=== PATIENT | female | born 1965 | race Caucasian/White ===

== ENCOUNTER 2020-06-19 20:44 | Inpatient (IN) | payer MEDICAID ==
[~2020-06-19] VITALS: Ht 157.5 cm; Wt 59.9 kg
[~2020-06-19 20:44] MED LIST: GABA-1181 PO; LORA1TAB3 PO; NOCURR; VENL-68 PO
[2020-06-20] VITALS (10 sets, daily range): BP systolic 105–151; BP diastolic 59–85
[2020-06-20] MEDS ORDERED: OLANZapine 5 MG RAPDIS TABLET PO PRN (00:30)
[2020-06-20] MEDS ORDERED: ZOLPIDEM TARTRATE 10 MG TABLET PO PRN (00:30)
[2020-06-20] MEDS: LORazepam 2 MG TABLET PO PRN ×4 (02:33→17:45)
[2020-06-20] MEDS ORDERED: INFLUENZA VIRUS VACCINE QVS 2020-21 (6MO+)/PF 60 MCG/0.5 ML SYRINGE IM ONE (03:00)
[2020-06-20] MEDS: NICOTINE 21 MG/24 HOUR PATCH TD SCH (08:52)
[2020-06-20] MEDS ORDERED: ACETAMINOPHEN 325 MG TABLET PO PRN (15:00)
[2020-06-20] MEDS ORDERED: GuaiFENesin/D-METHORPHAN [SUGAR-FREE] 200-20MG/10 ML SYRUP UDCUP PO PRN (15:45)
[2020-06-20] MEDS ORDERED: PROMETHAZINE HCL 25 MG TABLET PO PRN (15:45)
[2020-06-20] MEDS ORDERED: MAG HYDROX/AL HYDROX/SIMETH ES 30 ML SUSPENSION UDCUP PO PRN (15:45)
[2020-06-20] MEDS ORDERED: CYANOCOBALAMIN 1,000 MCG/ML VIAL IM ONE (15:45)
[2020-06-20] MEDS ORDERED: LOPERAMIDE HCL 2 MG CAPSULE PO PRN ×2 (15:45)
[2020-06-20] MEDS ORDERED: MAGNESIUM HYDROXIDE SUSPENSION 30 ML UDCUP PO PRN (15:45)
[2020-06-20] MEDS: THIAMINE 100 MG TABLET PO SCH (17:11)
[2020-06-20] MEDS: GABAPENTIN 300 MG CAPSULE PO SCH ×2 (17:12→21:16)
[2020-06-20] MEDS ORDERED: OLANZapine 7.5 MG TABLET PO SCH (21:00)
[2020-06-21] VITALS (7 sets, daily range): BP systolic 110–144; BP diastolic 69–83
[2020-06-21] MEDS ORDERED: LORazepam 2 MG TABLET PO PRN (07:00)
[2020-06-21] MEDS: FOLIC ACID 1 MG TABLET PO SCH (08:14)
[2020-06-21] MEDS: LORazepam 2 MG TABLET PO SCH ×4 (08:14→20:05)
[2020-06-21] MEDS: MULTIVITAMINS WITH MINERALS, THERAPEUTIC TABLET PO SCH (08:14)
[2020-06-21] MEDS: THIAMINE 100 MG TABLET PO SCH ×2 (08:14→16:19)
[2020-06-21] MEDS: GABAPENTIN 300 MG CAPSULE PO SCH ×2 (08:14→12:23)
[2020-06-21] MEDS: NICOTINE 21 MG/24 HOUR PATCH TD SCH (08:16)
[2020-06-21] MEDS ORDERED: DULoxetine HCL 20 MG CAPSULE PO SCH (09:00)
[2020-06-21] MEDS: GABAPENTIN 400 MG CAPSULE PO SCH ×2 (16:19→20:04)
[2020-06-21] MEDS: QUEtiapine FUMARATE 25 MG TABLET PO SCH (16:19)
[2020-06-21] MEDS ORDERED: QUEtiapine FUMARATE 200 MG TABLET PO SCH (21:00)
[2020-06-22 00:39] VITALS: BP 104/62
[2020-06-22 02:41] VITALS: BP 118/68
[2020-06-22 08:20] VITALS: BP 129/65
[2020-06-22] MEDS: GABAPENTIN 400 MG CAPSULE PO SCH ×4 (08:37→20:10)
[2020-06-22] MEDS: DULoxetine HCL 30 MG CAPSULE PO SCH (08:37)
[2020-06-22] MEDS: MULTIVITAMINS WITH MINERALS, THERAPEUTIC TABLET PO SCH (08:37)
[2020-06-22] MEDS: THIAMINE 100 MG TABLET PO SCH ×2 (08:37→16:24)
[2020-06-22] MEDS: QUEtiapine FUMARATE 25 MG TABLET PO SCH ×3 (08:37→16:32)
[2020-06-22] MEDS: FOLIC ACID 1 MG TABLET PO SCH (08:37)
[2020-06-22] MEDS: NICOTINE 21 MG/24 HOUR PATCH TD SCH (08:38)
[2020-06-22] MEDS: LORazepam 2 MG TABLET PO SCH ×4 (08:38→20:10)
[2020-06-22 12:31] VITALS: BP 106/68
[2020-06-22 16:00] VITALS: BP 114/71
[2020-06-22 16:15] VITALS: BP 114/71
[2020-06-22] MEDS: GABAPENTIN 100 MG CAPSULE PO SCH ×2 (17:19→20:10)
[2020-06-22] MEDS: QUEtiapine FUMARATE 300 MG TABLET PO SCH (20:11)
[2020-06-22] MEDS: PRAZOSIN HCL 1 MG CAPSULE PO SCH (20:45)
[2020-06-23] VITALS (7 sets, daily range): BP systolic 103–129; BP diastolic 31–81
[2020-06-23] MEDS ORDERED: LORazepam 1 MG TABLET PO PRN (07:00)
[2020-06-23] MEDS: LORazepam 1 MG TABLET PO SCH ×4 (08:24→20:03)
[2020-06-23] MEDS: THIAMINE 100 MG TABLET PO SCH ×2 (08:24→16:10)
[2020-06-23] MEDS: FOLIC ACID 1 MG TABLET PO SCH (08:25)
[2020-06-23] MEDS: QUEtiapine FUMARATE 25 MG TABLET PO SCH ×3 (08:25→16:10)
[2020-06-23] MEDS: DULoxetine HCL 30 MG CAPSULE PO SCH (08:25)
[2020-06-23] MEDS: GABAPENTIN 100 MG CAPSULE PO SCH ×4 (08:25→20:03)
[2020-06-23] MEDS: GABAPENTIN 400 MG CAPSULE PO SCH ×4 (08:25→20:03)
[2020-06-23] MEDS: MULTIVITAMINS WITH MINERALS, THERAPEUTIC TABLET PO SCH (08:25)
[2020-06-23] MEDS: NICOTINE 21 MG/24 HOUR PATCH TD SCH (08:28)
[2020-06-23] MEDS ORDERED: QUEtiapine FUMARATE 100 MG TABLET PO SCH (17:00)
[2020-06-23] MEDS: QUEtiapine FUMARATE 300 MG TABLET PO SCH (20:03)
[2020-06-23] MEDS: PRAZOSIN HCL 1 MG CAPSULE PO SCH (20:03)
[2020-06-24 00:15] VITALS: BP 116/77
[2020-06-24 06:02] VITALS: BP 105/58
[2020-06-24] MEDS ORDERED: LORazepam 1 MG TABLET PO PRN (07:00)
[2020-06-24 07:50] LABS: BASOPHILS % (AUTO) 0.9 % (0.0-2.0); EOSINOPHILS % (AUTO) 5.5 % (1.0-6.0); HEMATOCRIT 40.2 % (36-46); HEMOGLOBIN 13.4 g/dL (12.0-16.0); LYMPHOCYTES # (AUTO) 1.8 K/uL (1.0-4.8); LYMPHOCYTES % (AUTO) 32.4 % (22.0-44.0); MEAN CORPUSCULAR HEMOGLOBIN 33.2 pg (26.0-34.0); MEAN CORPUSCULAR HGB CONC 33.4 G/dL (31.0-37.0); MEAN CORPUSCULAR VOLUME 99 fL (80-100); MONOCYTES # (AUTO) 0.4 K/uL (0.1-1.0); MONOCYTES % (AUTO) 7.3 % (2.0-9.0); NEUTROPHILS % (AUTO) 53.9 % (40.0-70.0); PLATELET COUNT (AUTO) 195 K/uL (150-450); RED BLOOD CELL COUNT(AUTO) 4.05 MIL/uL (4.00-5.20); RED CELL DISTRIBUTION WIDTH 13.5 % (11.5-14.5)
[2020-06-24 07:59] LABS: HEMOGLOBIN A1C 4.9 % (3.8-5.6)
[2020-06-24 08:08] LABS: ALANINE AMINOTRANSFERASE 109 U/L (12-78); ALBUMIN 3.8 g/dL (3.4-5.0); ALKALINE PHOSPHATASE 67 U/L (46-116); ANION GAP 6 mmol/L (8-16); ASPARTATE AMINOTRANSFERASE 64 U/L (15-37); BILIRUBIN,TOTAL 0.3 mg/dL (0.1-1.0); CALCIUM, TOTAL 9.2 mg/dL (8.8-10.5); CARBON DIOXIDE 30 mmol/L (22-29); CHLORIDE 103 mmol/L (98-107); CHOL/HDL RATIO 2.7 (3.9-5.7); CHOLESTEROL 212 mg/dL (131-200); CREATININE 0.68 mg/dL (0.60-1.30); GLOMERULAR FILTR. RATE CALC > 60 mL/min (>60); GLUCOSE,RANDOM 86 mg/dL (70-110); HDL CHOLESTEROL 79 mg/dL (40-60); LDL CHOL (CALC.) 120 mg/dL (0-130); POTASSIUM 4.1 mmol/L (3.5-5.1); SODIUM SERUM 139 mmol/L (136-145); THYROID STIMULATING HORMONE 0.78 uIU/mL (0.36-3.74); TOTAL PROTEIN, SERUM 7.2 g/dL (6.4-8.2); TRIGLYCERIDES 67 mg/dL (15-150); UREA NITROGEN, BLOOD 20 mg/dL (7-18)
[2020-06-24 08:18] VITALS: BP 121/68
[2020-06-24] MEDS: FOLIC ACID 1 MG TABLET PO SCH (09:53)
[2020-06-24] MEDS: MULTIVITAMINS WITH MINERALS, THERAPEUTIC TABLET PO SCH (09:53)
[2020-06-24] MEDS: DULoxetine HCL 20 MG CAPSULE PO SCH (09:53)
[2020-06-24] MEDS: THIAMINE 100 MG TABLET PO SCH ×2 (09:53→17:03)
[2020-06-24] MEDS: QUEtiapine FUMARATE 100 MG TABLET PO SCH ×3 (09:53→17:04)
[2020-06-24] MEDS: GABAPENTIN 100 MG CAPSULE PO SCH ×4 (09:53→20:07)
[2020-06-24] MEDS: GABAPENTIN 400 MG CAPSULE PO SCH ×4 (09:53→20:07)
[2020-06-24] MEDS: NICOTINE 21 MG/24 HOUR PATCH TD SCH (09:54)
[2020-06-24 16:08] VITALS: BP 105/67
[2020-06-24 20:06] VITALS: BP 110/73
[2020-06-24] MEDS: PRAZOSIN HCL 1 MG CAPSULE PO SCH (20:07)
[2020-06-24] MEDS: QUEtiapine FUMARATE 300 MG TABLET PO SCH (20:07)
[2020-06-25] VITALS (7 sets, daily range): BP systolic 104–136; BP diastolic 65–80
[2020-06-25 07:13] LABS: COVID AG,FIA SOURCE NASOPHARYNGEAL
[2020-06-25] MEDS: GABAPENTIN 100 MG CAPSULE PO SCH ×4 (08:03→20:07)
[2020-06-25] MEDS: QUEtiapine FUMARATE 100 MG TABLET PO SCH ×3 (08:04→16:06)
[2020-06-25] MEDS: DULoxetine HCL 20 MG CAPSULE PO SCH (08:04)
[2020-06-25] MEDS: MULTIVITAMINS WITH MINERALS, THERAPEUTIC TABLET PO SCH (08:04)
[2020-06-25] MEDS: GABAPENTIN 400 MG CAPSULE PO SCH ×4 (08:04→20:07)
[2020-06-25] MEDS: NICOTINE 21 MG/24 HOUR PATCH TD SCH (08:04)
[2020-06-25] MEDS: FOLIC ACID 1 MG TABLET PO SCH (08:04)
[2020-06-25] MEDS: THIAMINE 100 MG TABLET PO SCH ×2 (08:04→16:06)
[2020-06-25] MEDS: HydrOXYzine PAMOATE 50 MG CAPSULE PO PRN ×2 (09:07→14:03)
[2020-06-25] MEDS: PRAZOSIN HCL 1 MG CAPSULE PO SCH (20:07)
[2020-06-25] MEDS: QUEtiapine FUMARATE 300 MG TABLET PO SCH (20:07)
[2020-06-26 01:06] VITALS: BP 128/80
[2020-06-26] MEDS: QUEtiapine FUMARATE 100 MG TABLET PO PRN ×2 (01:15→17:37)
[2020-06-26] MEDS: ACETAMINOPHEN 325 MG TABLET PO PRN ×2 (01:16→14:02)
[2020-06-26 04:34] VITALS: BP 119/73
[2020-06-26 05:06] VITALS: BP 119/73
[2020-06-26] MEDS: DULoxetine HCL 20 MG CAPSULE PO SCH (08:08)
[2020-06-26] MEDS: THIAMINE 100 MG TABLET PO SCH ×2 (08:08→16:37)
[2020-06-26] MEDS: GABAPENTIN 400 MG CAPSULE PO SCH ×4 (08:08→19:53)
[2020-06-26] MEDS: FOLIC ACID 1 MG TABLET PO SCH (08:08)
[2020-06-26] MEDS: QUEtiapine FUMARATE 100 MG TABLET PO SCH ×2 (08:08→12:27)
[2020-06-26] MEDS: GABAPENTIN 100 MG CAPSULE PO SCH ×2 (08:08→12:26)
[2020-06-26] MEDS: MULTIVITAMINS WITH MINERALS, THERAPEUTIC TABLET PO SCH (08:08)
[2020-06-26] MEDS: NICOTINE 21 MG/24 HOUR PATCH TD SCH (08:09)
[2020-06-26 08:11] VITALS: BP 126/69
[2020-06-26] MEDS ORDERED: HydrOXYzine HCL 50 MG TABLET PO PRN (16:15)
[2020-06-26 16:18] VITALS: BP 125/69
[2020-06-26] MEDS: QUEtiapine FUMARATE 200 MG TABLET PO SCH (19:53)
[2020-06-26] MEDS: PRAZOSIN HCL 1 MG CAPSULE PO SCH (20:37)
[2020-06-27 04:24] VITALS: BP 116/63
[2020-06-27 08:13] VITALS: BP 110/63
[2020-06-27] MEDS: THIAMINE 100 MG TABLET PO SCH ×2 (08:43→16:08)
[2020-06-27] MEDS: MULTIVITAMINS WITH MINERALS, THERAPEUTIC TABLET PO SCH (08:44)
[2020-06-27] MEDS: FOLIC ACID 1 MG TABLET PO SCH (08:44)
[2020-06-27] MEDS: DULoxetine HCL 20 MG CAPSULE PO SCH (08:45)
[2020-06-27] MEDS: GABAPENTIN 400 MG CAPSULE PO SCH ×3 (08:45→16:08)
[2020-06-27] MEDS: NICOTINE 21 MG/24 HOUR PATCH TD SCH (08:46)
[2020-06-27] MEDS: QUEtiapine FUMARATE 100 MG TABLET PO PRN (16:10)
[2020-06-27 16:17] VITALS: BP 131/78
[2020-06-27] MEDS ORDERED: DULO-8 PO (18:05)
[2020-06-27] MEDS ORDERED: OMEG-135 PO (18:05)
[2020-06-27] MEDS ORDERED: PRAZ1 PO (18:05)
[2020-06-27] MEDS ORDERED: NALT50TA PO (18:05)
[2020-06-27] MEDS ORDERED: QUET200T29 PO (18:05)
[2020-06-27] MEDS ORDERED: MELA5TAB3 PO (18:05)
[2020-06-27] MEDS ORDERED: GABA-1181 PO (18:05)
[2020-06-27] MEDS ORDERED: LORA-1000 PO (18:10)
[2020-06-27] MEDS: PRAZOSIN HCL 1 MG CAPSULE PO SCH (20:32)
[2020-06-27] MEDS: QUEtiapine FUMARATE 200 MG TABLET PO SCH (20:32)
[2020-06-27] MEDS ORDERED: MELATONIN 5 MG TABLET PO SCH (21:00)
[2020-06-28 00:24] VITALS: BP 129/67
[2020-06-28] MEDS: QUEtiapine FUMARATE 100 MG TABLET PO PRN (02:10)
[2020-06-28] MEDS: THIAMINE 100 MG TABLET PO SCH (08:18)
[2020-06-28] MEDS: MULTIVITAMINS WITH MINERALS, THERAPEUTIC TABLET PO SCH (08:18)
[2020-06-28] MEDS: FOLIC ACID 1 MG TABLET PO SCH (08:18)
[2020-06-28 08:23] VITALS: BP 106/70
[2020-06-28] MEDS: NICOTINE 21 MG/24 HOUR PATCH TD SCH (08:50)
[2020-06-28] MEDS ORDERED: DULoxetine HCL 60 MG CAPSULE PO SCH (09:00)
[2020-06-28] MEDS ORDERED: OMEGA-3/DHA/EPA/FISH OIL 1,000 MG CAPSULE PO SCH (09:00)
[2020-06-28] MEDS ORDERED: GABAPENTIN 300 MG CAPSULE PO SCH (09:00)
[2020-06-28] MEDS ORDERED: NALTREXONE HCL 50 MG TABLET PO SCH (09:00)
== END 2020-06-28 09:50 | disposition home or self-care (01) | DRG 750 ==
LOC: B2S 06-20 00:25
PROVIDERS: ADMIT Psychiatry & Neurology Psychiatry; ATTEND Psychiatry & Neurology Psychiatry
DX: F25.1 Schizoaffective disorder, depressive type (principal); J44.9 Chronic obstructive pulmonary disease, unspecified; F17.200 Nicotine dependence, unspecified, uncomplicated; F12.90 Cannabis use, unspecified, uncomplicated; F43.10 Post-traumatic stress disorder, unspecified; Y90.9 Presence of alcohol in blood, level not specified; Z91.5 Personal history of self-harm; F10.20 Alcohol dependence, uncomplicated; K21.9 Gastro-esophageal reflux disease without esophagitis; Z90.49 Acquired absence of other specified parts of digestive tract; F41.0 Panic disorder [episodic paroxysmal anxiety]; Z79.899 Other long term (current) drug therapy; Z59.0 Homelessness; Z20.822 Contact with and (suspected) exposure to COVID-19; Z23 Encounter for immunization
CPT/HCPCS: 83036; 84436; 84443; 87426; 90686; A9575; J3420

== ENCOUNTER 2020-10-26 21:17 | Inpatient (IN) | payer MEDICAID ==
[~2020-10-26] VITALS: Ht 157.5 cm; Wt 58.8 kg
[~2020-10-26 21:17] MED LIST changes: +DULO-8 PO; -LORA1TAB3 PO; +MELA5TAB3 PO; +NALT50TA PO; -NOCURR; +OMEG-135 PO; +PRAZ1 PO; +QUET200T29 PO; -VENL-68 PO
[2020-10-26] MEDS ORDERED: ZOLPIDEM TARTRATE 10 MG TABLET PO PRN (22:15)
[2020-10-26] MEDS ORDERED: HALOPERIDOL 5 MG TABLET PO PRN (22:15)
[2020-10-26 22:50] LABS: COVID AG,FIA SOURCE NASAL SWAB
[2020-10-27] VITALS (15 sets, daily range): BP systolic 71–155; BP diastolic 44–90
[2020-10-27] MEDS: LORazepam 2 MG TABLET PO PRN ×3 (00:26→12:06)
[2020-10-27 07:44] LABS: BASOPHILS % (AUTO) 0.7 % (0.0-2.0); EOSINOPHILS % (AUTO) 5.3 % (1.0-6.0); HEMATOCRIT 38.8 % (36-46); HEMOGLOBIN 13.6 g/dL (12.0-16.0); LYMPHOCYTES # (AUTO) 2.2 K/uL (1.0-4.8); MEAN CORPUSCULAR HEMOGLOBIN 33.1 pg (26.0-34.0); MEAN CORPUSCULAR HGB CONC 34.9 G/dL (31.0-37.0); MEAN CORPUSCULAR VOLUME 95 fL (80-100); MONOCYTES # (AUTO) 0.5 K/uL (0.1-1.0); MONOCYTES % (AUTO) 8.3 % (2.0-9.0); NEUTROPHILS # (AUTO) 2.7 K/uL (1.8-7.7); NEUTROPHILS % (AUTO) 46.7 % (40.0-70.0); PLATELET COUNT (AUTO) 202 K/uL (150-450); RED BLOOD CELL COUNT(AUTO) 4.09 MIL/uL (4.00-5.20)
[2020-10-27] MEDS ORDERED: LOPERAMIDE HCL 2 MG CAPSULE PO PRN (07:45)
[2020-10-27] MEDS ORDERED: GuaiFENesin/D-METHORPHAN [SUGAR-FREE] 200-20MG/10 ML SYRUP UDCUP PO PRN (07:45)
[2020-10-27] MEDS ORDERED: DOCUSATE SODIUM 100 MG CAPSULE PO PRN (07:45)
[2020-10-27] MEDS ORDERED: ONDANSETRON HCL 4 MG TABLET PO PRN (07:45)
[2020-10-27] MEDS ORDERED: MAGNESIUM HYDROXIDE SUSPENSION 30 ML UDCUP PO PRN (07:45)
[2020-10-27] MEDS ORDERED: CloNIDine HCL 0.1 MG TABLET PO PRN (07:45)
[2020-10-27] MEDS ORDERED: ALBUTEROL SULFATE HFA 90 MCG/PUFF 8 GM INHALER IH PRN (07:45)
[2020-10-27] MEDS ORDERED: ACETAMINOPHEN 325 MG TABLET PO PRN (07:45)
[2020-10-27] MEDS ORDERED: NICOTINE 14 MG/24 HOUR PATCH TD PRN (07:45)
[2020-10-27] MEDS ORDERED: PETROLATUM,WHITE 28 GM JELLY TP PRN (07:45)
[2020-10-27] MEDS ORDERED: IBUPROFEN 400 MG TABLET PO PRN (07:45)
[2020-10-27] MEDS ORDERED: MAG HYDROX/AL HYDROX/SIMETH ES 30 ML SUSPENSION UDCUP PO PRN (07:45)
[2020-10-27 07:51] LABS: HEMOGLOBIN A1C 5.2 % (3.8-5.6)
[2020-10-27 08:12] LABS: ALANINE AMINOTRANSFERASE 81 U/L (12-78); ALBUMIN 3.5 g/dL (3.4-5.0); ALKALINE PHOSPHATASE 109 U/L (46-116); ANION GAP 10 mmol/L (8-16); ASPARTATE AMINOTRANSFERASE 76 U/L (15-37); BILIRUBIN,TOTAL 1.8 mg/dL (0.1-1.0); CALCIUM, TOTAL 8.9 mg/dL (8.8-10.5); CARBON DIOXIDE 33 mmol/L (22-29); CHLORIDE 96 mmol/L (98-107); CHOL/HDL RATIO 2.1 (3.9-5.7); CHOLESTEROL 187 mg/dL (131-200); CREATININE 0.63 mg/dL (0.60-1.30); FREE T4 (FREE THYROXINE) 0.93 ng/dL (0.76-1.46); GLOMERULAR FILTR. RATE CALC > 60 mL/min (>60); GLUCOSE,RANDOM 65 mg/dL (70-110); HDL CHOLESTEROL 89 mg/dL (40-60); LDL CHOL (CALC.) 86 mg/dL (0-130); SODIUM SERUM 139 mmol/L (136-145); TOTAL PROTEIN, SERUM 6.7 g/dL (6.4-8.2); TRIGLYCERIDES 62 mg/dL (15-150); UREA NITROGEN, BLOOD 29 mg/dL (7-18)
[2020-10-27] MEDS: OMEGA-3/DHA/EPA/FISH OIL 1,000 MG CAPSULE PO SCH (08:31)
[2020-10-27] MEDS: DULoxetine HCL 60 MG CAPSULE PO SCH (12:06)
[2020-10-27] MEDS: NALTREXONE HCL 50 MG TABLET PO SCH (12:06)
[2020-10-27] MEDS: GABAPENTIN 300 MG CAPSULE PO SCH ×2 (12:08→16:51)
[2020-10-27] MEDS ORDERED: POTASSIUM CHLORIDE 20 MEQ ER TABLET PO ONE (15:30)
[2020-10-27] MEDS ORDERED: ChlordiazePOXIDE HCL 25 MG CAPSULE PO PRN (16:15)
[2020-10-27] MEDS: QUEtiapine FUMARATE 200 MG TABLET PO SCH (21:02)
[2020-10-27] MEDS: PRAZOSIN HCL 1 MG CAPSULE PO SCH (21:02)
[2020-10-27] MEDS: MELATONIN 5 MG TABLET PO SCH (21:02)
[2020-10-27 23:49] LABS: GLUCOMETER DEV NAME(LOC) BV3S.; GLUCOSE,POINT OF CARE 114 MG/DL (70-110)
[2020-10-28] VITALS (13 sets, daily range): BP systolic 83–168; BP diastolic 49–71
[2020-10-28] MEDS ORDERED: ChlordiazePOXIDE HCL 25 MG CAPSULE PO PRN (07:00)
[2020-10-28] MEDS: OMEGA-3/DHA/EPA/FISH OIL 1,000 MG CAPSULE PO SCH (09:02)
[2020-10-28] MEDS: ChlordiazePOXIDE HCL 25 MG CAPSULE PO SCH ×4 (09:04→20:01)
[2020-10-28] MEDS: GABAPENTIN 300 MG CAPSULE PO SCH ×3 (09:04→16:42)
[2020-10-28] MEDS: DULoxetine HCL 60 MG CAPSULE PO SCH (09:06)
[2020-10-28] MEDS: NALTREXONE HCL 50 MG TABLET PO SCH (09:06)
[2020-10-28] MEDS: MELATONIN 5 MG TABLET PO SCH (20:40)
[2020-10-28] MEDS: QUEtiapine FUMARATE 200 MG TABLET PO SCH (20:40)
[2020-10-28] MEDS: PRAZOSIN HCL 1 MG CAPSULE PO SCH (20:41)
[2020-10-29] VITALS (7 sets, daily range): BP systolic 89–118; BP diastolic 60–73
[2020-10-29] MEDS: ChlordiazePOXIDE HCL 25 MG CAPSULE PO SCH ×4 (08:17→20:18)
[2020-10-29] MEDS: NALTREXONE HCL 50 MG TABLET PO SCH (08:17)
[2020-10-29] MEDS: GABAPENTIN 300 MG CAPSULE PO SCH ×3 (08:17→16:15)
[2020-10-29] MEDS: OMEGA-3/DHA/EPA/FISH OIL 1,000 MG CAPSULE PO SCH (08:17)
[2020-10-29] MEDS: DULoxetine HCL 60 MG CAPSULE PO SCH (09:00)
[2020-10-29] MEDS: QUEtiapine FUMARATE 200 MG TABLET PO SCH (20:18)
[2020-10-29] MEDS: MELATONIN 5 MG TABLET PO SCH (20:18)
[2020-10-29] MEDS: PRAZOSIN HCL 1 MG CAPSULE PO SCH (20:18)
[2020-10-30] VITALS (7 sets, daily range): BP systolic 89–110; BP diastolic 58–68
[2020-10-30] MEDS ORDERED: ChlordiazePOXIDE HCL 10 MG CAPSULE PO PRN (07:00)
[2020-10-30 07:33] LABS: EOSINOPHILS % (AUTO) 6.6 % (1.0-6.0); HEMOGLOBIN 12.8 g/dL (12.0-16.0); LYMPHOCYTES # (AUTO) 0.9 K/uL (1.0-4.8); LYMPHOCYTES % (AUTO) 27.1 % (22.0-44.0); MEAN CORPUSCULAR HEMOGLOBIN 33.1 pg (26.0-34.0); MEAN CORPUSCULAR HGB CONC 33.7 G/dL (31.0-37.0); MEAN CORPUSCULAR VOLUME 98 fL (80-100); MONOCYTES # (AUTO) 0.2 K/uL (0.1-1.0); MONOCYTES % (AUTO) 6.3 % (2.0-9.0); PLATELET COUNT (AUTO) 145 K/uL (150-450); RED BLOOD CELL COUNT(AUTO) 3.87 MIL/uL (4.00-5.20); RED CELL DISTRIBUTION WIDTH 14.4 % (11.5-14.5)
[2020-10-30 07:50] LABS: ANION GAP 7 mmol/L (8-16); CALCIUM, TOTAL 8.7 mg/dL (8.8-10.5); CARBON DIOXIDE 29 mmol/L (22-29); CHLORIDE 105 mmol/L (98-107); GLOMERULAR FILTR. RATE CALC > 60 mL/min (>60); GLUCOSE,RANDOM 97 mg/dL (70-110); POTASSIUM 4.1 mmol/L (3.5-5.1); SODIUM SERUM 141 mmol/L (136-145); UREA NITROGEN, BLOOD 16 mg/dL (7-18)
[2020-10-30] MEDS: OMEGA-3/DHA/EPA/FISH OIL 1,000 MG CAPSULE PO SCH (08:30)
[2020-10-30] MEDS: NALTREXONE HCL 50 MG TABLET PO SCH (08:30)
[2020-10-30] MEDS: GABAPENTIN 300 MG CAPSULE PO SCH ×3 (08:32→16:53)
[2020-10-30] MEDS: DULoxetine HCL 60 MG CAPSULE PO SCH (09:55)
[2020-10-30] MEDS: ChlordiazePOXIDE HCL 10 MG CAPSULE PO SCH ×4 (09:56→20:51)
[2020-10-30] MEDS: LORazepam 2 MG TABLET PO PRN (09:57)
[2020-10-30] MEDS: QUEtiapine FUMARATE 200 MG TABLET PO SCH (20:51)
[2020-10-30] MEDS: PRAZOSIN HCL 1 MG CAPSULE PO SCH (20:51)
[2020-10-30] MEDS: MELATONIN 5 MG TABLET PO SCH (20:51)
[2020-10-31] MEDS: LORazepam 2 MG TABLET PO PRN ×2 (05:49→13:22)
[2020-10-31 06:01] VITALS: BP 104/68
[2020-10-31 06:05] VITALS: BP 102/68
[2020-10-31 06:06] VITALS: BP 108/70
[2020-10-31] MEDS ORDERED: ChlordiazePOXIDE HCL 10 MG CAPSULE PO PRN (07:00)
[2020-10-31] MEDS: DULoxetine HCL 60 MG CAPSULE PO SCH (08:21)
[2020-10-31] MEDS: NALTREXONE HCL 50 MG TABLET PO SCH (08:21)
[2020-10-31] MEDS: OMEGA-3/DHA/EPA/FISH OIL 1,000 MG CAPSULE PO SCH (08:21)
[2020-10-31] MEDS: GABAPENTIN 300 MG CAPSULE PO SCH ×2 (08:21→13:10)
[2020-10-31 08:25] VITALS: BP 124/81
[2020-10-31 16:20] VITALS: BP 118/76
== END 2020-10-31 20:54 | disposition home or self-care (01) | DRG 751 ==
LOC: B3A 23:24
PROVIDERS: ADMIT Psychiatry & Neurology Child & Adolescent Psychiatry; ATTEND Psychiatry & Neurology Child & Adolescent Psychiatry
DX: F33.2 Major depressive disorder, recurrent severe without psychotic features (principal); R45.851 Suicidal ideations; E87.6 Hypokalemia; K21.9 Gastro-esophageal reflux disease without esophagitis; J44.9 Chronic obstructive pulmonary disease, unspecified; F41.9 Anxiety disorder, unspecified; Z20.822 Contact with and (suspected) exposure to COVID-19
CPT/HCPCS: 80048; 80053; 80061; 82962; 83036; 84439; 84443; 85025; A9575